=== PATIENT | female | born 1980 | race Two or more races ===

== ENCOUNTER 2024-11-16 13:34 | Emergency (ER) | payer MEDICAID, OTHER ==
[~2024-11-16] VITALS: Ht 170.2 cm; Wt 90.9 kg
[2024-11-16 15:00] VITALS: PULSE 55; RESP 12; O2SAT 96
[2024-11-16] MEDS: ONDANSETRON HCL 4 MG/2 ML VIAL IV ONE (16:48)
[2024-11-16] MEDS: MORPHINE SULFATE 4 MG/ML SYR/VIAL IV ONE ×2 (16:49→17:53)
--- NOTE | 2024-11-16 17:05 | ED.PDOC ---
Musculoskeletal HPI Comments 44Y F with PMHx gastritis presents to ED via EMS for chief complaint LLE pain [id number] with dizziness and weakness. Pt states pain begins at lt foot/ankle and radiates to her back. Pt had a fall in 2023 and went to the ER for the first time in 2023. Pt has been seen by [facility] and [facility] and has been told it may be her Achilles tendon. Pt also had blood clot ruled out on Tuesday at a different ER. Pt denies recent trauma. No other symptoms reported. Chief Complaint: Lower Extremity Time Seen by MD: 16:22 Reviewed Notes: Nurses Notes, Trap Operator Notes, Medications, Allergies Allergies: Coded Allergies: NO KNOWN ALLERGIES (Unverified , 11/16/24) Home Meds Active Scripts Methocarbamol (Methocarbamol) 500 Mg Tab, 500 MG PO QIDP PRN for 3 Days, #8 TAB Prov:SHERRIE FRANCIS MD 11/16/24 Information Source: Patient, Friend, Emergency Med Personnel Mode of Arrival: EMS Brought in by: EMS Location: Left Extremity Location: Ankle, Foot, Leg Timing: Months Prehospital treatment: Pain Meds (1g IV Tylenol) Severity: Moderate Able to Move Extremity: No Bear Weight: No Pain: Moderate Mechanism: Unknown Circumstances: Fall Onset of Symptoms: After Trauma Symptoms: Pain DVT Risk Factors: NONE Associated signs and symptoms: Back pain, Ankle pain, Leg pain Past Medical History Past Medical History (Other): Gastritis Surgical History: Denies all surgeries CNC GRINDER History: No Pertinent CNC GRINDER History Family History Family History: Unknown Social History Smoker: Non-Smoker Alcohol: Denies ETOH Use Drugs: Denies Drug Use Lives In: Home Constitutional: denies: chills, diaphoresis, fatigue, fever, malaise, sweats, weakness, others EENTM: denies: blurred vision, double vision, ear bleeding, ear discharge, ear drainage, ear pain, ear ringing, eye pain, eye redness, hearing loss, mouth pain, mouth swelling, nasal discharge, nose bleeding, nose congestion, nose pain, photophobia, tearing, throat pain, throat swelling, voice changes, others Respiratory: denies: cough, hemoptysis, orthopnea, SOB at rest, shortness of breath, SOB with excertion, stridor, wheezing, others Cardiovascular: denies: chest pain, dizzy spells, diaphoresis, Dyspnea on exertion, edema, irregular heart beat, left arm pain, lightheadedness, palpitations, PND, syncope, others Gastrointestinal: denies: abdomen distended, abdominal pain, blood streaked bowels, constipated, diarrhea, dysphagia, difficulty swallowing, hematemesis, melena, nausea, poor appetite, poor fluid intake, rectal bleeding, rectal pain, vomiting, others Genitourinary: denies: abnormal vagina bleeding, burning, dyspareunia, dysuria, flank pain, frequency, hematuria, incontinence, pain, , vagina d ischarge, urgency, others Neurological: reports: dizziness, weakness; denies: fainting, headache, left sided numbness, left sided weakness, numbness, paresthesia, pre-existing deficit, right sided numbness, right sided weakness, seizure, speech problems, tingling, tremors, others Musculoskeletal: reports: back pain, others (LLE pain); denies: gout, joint pain, joint swelling, muscle pain, muscle stiffness, neck pain Integumetry: denies: bruises, change in color, change in hair/nails, dryness, laceration, lesions, lumps, rash, wounds, others Allergic/Immunocompromised: denies: Difficulty Healing, Frequent Infections, Hives, Itching, others Hematologic/Lymphatic: denies: anemia, blood clots, easy bleeding, easy bruising, swollen glands, others Endocrine: denies: excessive hunger, excessive sweating, excessive thirst, excessive urination, flushing, intolerance to cold, intolerance to heat, unexplained weight gain, unexplained weight loss, others Psychiatric: denies: anxiety, bipolar disorder, depression, hopeless, panic disorder, schizophrenia, sleepless, suicidal, others All Other Systems: Reviewed and Negative Physical Exam General Appearance: Mild Distress HEENT: Normal ENT Inspection, Pharynx Normal, TMs Normal Neck: Full Range of Motion, Non-Tender, Normal, Normal Inspection Respiratory: Chest Non-Tender, Lungs Clear, No Accessory Muscle Use, No Respiratory Distress, Normal Breath Sounds Cardiovascular: No Edema, No JVD, No Murmur, No Gallop, Normal Peripheral Pulses, Regular Rate/Rhythm Breast Exam: Deferred Gastrointestinal: No Organomegaly, Non Tender, No Pulsatile Mass, Normal Bowel Sounds, Soft Genitalia: Deferred Pelvic: Deferred Rectal: Deferred Extremities: Normal capillary refill, Normal inspection, No pedal edema, Other (Left lower extremity with evidence of diffuse tenderness to palpation starting at her upper thigh and extending down to her foot, sensation intact to light touch throughout, 2+ DP pulse, patient does have full range of motion however it is limited due to pain, no erythema, no rash, no ecchymosis, no swelling, no open wound, no drainage, no crepitus, no skip lesions or or bullae) Musculoskeletal : Apperance: Normal Neurologic: Alert, reporting developer II-XII nml as Tested, No Motor Deficits, Normal Affect, Normal Mood, No Sensory Deficits Cerebellar Function: Normal Reflexes: Normal Skin: Dry, Normal Color, Warm Lymphatic: No Adenopathy Was a procedure done? Was a procedure done?: No Differential Diagnosis EXT Differential Diagnosis: Sprain, Strain, Other (Fracture, dislocation, compartment syndrome, necrotizing soft tissue infection) X-Ray, Labs, Meds, VS Vital Signs Date Time Temp Pulse Resp B/P (MAP) Pulse Ox O2 Delivery O2 Flow Rate FiO2 11/16/24 20:51 60 16 102/67 11/16/24 20:15 62 16 100/74 11/16/24 20:02 62 12 94 Room Air* 0 21 11/16/24 20:00 98.8 62 16 100/74 (83) 94 98.8 11/16/24 19:00 57 16 119/77 (91) 95 11/16/24 17:53 58 14 106/60 11/16/24 17:30 58 14 106/60 (75) 96 11/16/24 17:17 58 14 106/60 11/16/24 16:49 76 22 113/64 11/16/24 15:00 97.9 55 12 110/67 (81) 96 97.9 11/16/24 15:00 55 12 96 Room Air* 0 21 11/16/24 14:16 78 22 141/111 (121) 98 Current Medications Medications (Trade) Dose Ordered Sig/Jeff Route Start Time Stop Time Status Last Admin Morphine Sulfate 4 mg ONCE ONCE IV 11/16/24 16:45 11/16/24 16:46 DC 11/16/24 16:49 Ondansetron HCl (Zofran) 4 mg ONCE ONCE IV 11/16/24 16:45 11/16/24 16:46 DC 11/16/24 16:48 Diphenhydramine HCl (Benadryl Injection) 25 mg ONCE ONCE IV 11/16/24 17:15 11/16/24 17:16 DC 11/16/24 20:26 Morphine Sulfate 4 mg ONCE ONCE IV 11/16/24 17:45 11/16/24 17:46 DC 11/16/24 17:53 Morphine Sulfate 2 mg ONCE ONCE IV 11/16/24 20:15 11/16/24 20:16 DC 11/16/24 20:15 [place] [id number] Ph: [phone] DIAGNOSTIC IMAGING Diagnostic Imaging Report : [id number] Signed PATIENT: LARISSA ALLRED ACCT: [id number] UNIT: [id number] : 1980 LOC: ER ROOM / BED: / AGE / SEX: 44 / F ADM STATUS: REG ER SERVICE [id number] ORDERING PHYSICIAN: SHERRIE FRANCIS MD PROCEDURE(s): LLEX - LEFT LOWER EXTREMITY W/O CON REASON: eval for achilles tendon tear or other traumatic pathology ORDER NUMBER(s): [id number], ACCESSION NUMBER(s): [id number] EXAM: CT LEFT LOWER EXTREMITY W/O CON INDICATION: eval for achilles tendon tear or other traumatic pathology EXAM DATE: 11/16/2024 05:57 PM COMPARISON: None TECHNIQUE: Multiple axial CT images of the left ankle/foot were obtained using bone algorithm. Axial and coronal reformatting was done. Bone and soft tissue windows were reviewed. Radiation Dose Information: CT Dose: CTDI volume is 7.75 mGy. Dose-length product is 228.66 mGy*cm Findings/Impression: There is no evidence of an acute fracture, dislocation, blastic, or lytic lesions. No radiopaque foreign bodies. No joint effusion or superficial soft tissue abnormalities. No focal fluid collections. Recommend MRI to better evaluate for ligamentous injuries. ATED BY: CORINNA DYKES DO DICTATED DATE/TIME: 11/16/241827 SIGNED BY: CORINNA DYKES DO SIGNED DATE/TIME: 11/16/241827 CC: X-Ray, Labs, Meds, VS Comment Patient presents with constellation of symptoms most consistent with a strain/sprain. Vital signs stable, afebrile. Physical exam as above consistent with strain/sprain and without evidence of significant pathology or neurovascular compromise. Based off of the history, physical exam, and workup, I considered but doubt fracture, dislocation, septic joint, open fracture, compartment syndrome, or other significant neurovascular injury. The patient also understands the importance of following up with their primary care physician within 2-3 days for re-evaluation and for a possible referral to an orthopedist, outpatient MRI (has it scheduled tomorrow with [facility]), and/or physical therapy. The patient was also instructed on using [id number] medications to help control pain, resting the affected area, using ice/heat packs, and compressing/elevating the area to help with swelling. The patient was instructed to return to emergency department for worsening of symptoms, numbness, weakness, fevers, p.o. intolerance, or any other concerning symptoms. Patient expressed understanding and was discharged home in stable condition in no distress. Time of 1ST Reevaluation: 16:52 Reevaluation 1ST: Unchanged Patient Education/Counseling: Diagnosis, Treatment, Prognosis, Need For Follow Up Family Education/Counseling: Diagnosis, Treatment, Prognosis, Need For Follow Up Departure 1 Departure Time of Disposition: 21:46 Impression: Primary Impression: Leg pain Disposition: 01 HOME / SELF CARE / HOMELESS Condition: Stable e-Prescriptions Methocarbamol (Methocarbamol) 500 Mg Tab 500 MG PO QIDP PRN for 3 Days, #8 TAB Prov: SHERRIE FRANCIS MD 11/16/24 Discharged With: Friend Critical Care Note Critical Care Time?: No Stability Stability form required: No Heart Score Heart Score: Heart Score Response (Comments) Value History N/A 0 EKG N/A 0 Age N/A 0 Risk Factors N/A 0 Troponin N/A 0 Total 0 I personally scribed for SHERRIE FRANCIS [facility] on 11/16/24 at 17:05. Electronically submitted by Cori Serrano ([facility]). I personally scribed for SHERRIE FRANCIS MD ([facility]) on 11/16/24 at 18:33. Electronically submitted by Cori Serrano ([facility]). I personally scribed for SHERRIE FRANCIS MD ([email or web address]) on 11/16/24 at 18:58. Electronically submitted by Cori Serrano ([facility]). SHERRIE FRANCIS MD Nov 16, 2024 17:05
[2024-11-16] MEDS: diphenhdrAMINE HCL 50 MG/1 ML VL IV ONE (17:11)
--- NOTE | 2024-11-16 18:31 | DVH ---
EXAM: CT LEFT LOWER EXTREMITY W/O CON INDICATION: eval for achilles tendon tear or other traumatic pathology EXAM DATE: 11/16/2024 05:57 PM COMPARISON: None TECHNIQUE: Multiple axial CT images of the left ankle/foot were obtained using bone algorithm. Axial and coronal reformatting was done. Bone and soft tissue windows were reviewed. Radiation Dose Information: CT Dose: CTDI volume is 7.75 mGy. Dose-length product is 228.66 mGy*cm Findings/Impression: There is no evidence of an acute fracture, dislocation, blastic, or lytic lesions. No radiopaque foreign bodies. No joint effusion or superficial soft tissue abnormalities. No focal fluid collections. Recommend MRI to better evaluate for ligamentous injuries.
[2024-11-16] MEDS ORDERED: METH-1181 PO (19:38)
[2024-11-16 20:02] VITALS: PULSE 62; RESP 12; O2SAT 94
[2024-11-16] MEDS: MORPHINE SULFATE INJ 2 MG/ml SYRG IV ONE (20:15)
[2024-11-16] MEDS: diphenhdrAMINE HCL 50 MG/1 ML VL ONE (20:28)
[2024-11-16 21:19] VITALS: BP 102/67; PULSE 54; RESP 15; TEMP 98.8; O2SAT 96
== END 2024-11-17 05:04 | disposition home or self-care (01) ==
LOC: EDBD 13:34 → ER 13:34
DX: M79.605 Pain in left leg (principal); Z87.19 Personal history of other diseases of the digestive system; Z79.899 Other long term (current) drug therapy
CPT/HCPCS: 73700; 96374; 96375; 96376; 99285; J1200; J2270; J2405